=== PATIENT | male | born 2000 | race Caucasian/White ===

== ENCOUNTER 2020-02-21 13:20 | Emergency (ER) | payer OTHER ==
[~2020-02-21] VITALS: Ht 167.6 cm; Wt 67.1 kg
[2020-02-21 13:31] VITALS: BP 122/89; Ht 167.6 cm; Wt 67.1 kg
== END 2020-02-21 15:57 | disposition left against medical advice (07) ==
LOC: ED 13:20
DX: Z53.21 Procedure and treatment not carried out due to patient leaving prior to being seen by health care provider (principal)

== ENCOUNTER 2020-05-31 23:14 | Emergency (ER) | payer OTHER ==
[~2020-05-31] VITALS: Ht 167.6 cm; Wt 70.3 kg
[2020-05-31 23:29] VITALS: Ht 167.6 cm; Wt 70.3 kg
[2020-06-01 01:24] LABS: CALCIUM 8.2 mg/dL (8.5-10.1); CHLORIDE SERUM 106 mmol/L (98-107); CREATININE SERUM 0.8 mg/dL (0.7-1.3); GFR1 > 60 mL/min; GLUCOSE SERUM 88 mg/dL (74-106); POTASSIUM SERUM 3.5 mmol/L (3.5-5.1); SODIUM SERUM 141 mmol/L (136-145)
[2020-06-01 01:29] LABS: ALBUMIN 3.7 g/dL (3.4-5.0); ALKALINE PHOSPHATASE 66 U/L (46-116); ALT/SGPT 19 U/L (16-63); AST/SGOT 20 U/L (15-37); BILIRUBIN TOTAL 0.35 mg/dL (0.20-1.00); LIPASE 142 IU/L (73-393); TOTAL PROTEIN, SERUM 6.6 g/dL (6.4-8.2)
[2020-06-01 01:35] LABS: BASOPHIL % 0.7 % (0.2-1.5); PLATELET COUNT 277 x10^3mcL (152-348); RED CELL DISTRIBUTION WIDTH 12.8 % (12.1-16.2)
[2020-06-01 02:43] VITALS: BP 101/58
== END 2020-06-01 02:43 | disposition home or self-care (01) ==
LOC: ED 23:14
PROVIDERS: Emergency Medicine
DX: R10.33 Periumbilical pain (principal)
CPT/HCPCS: J1885; Q9967